=== PATIENT | female | born 1980 | race Caucasian/White ===

== ENCOUNTER 2017-06-17 11:38 | Emergency (ER) | payer OTHER ==
[~2017-06-17] VITALS: Ht 165.1 cm; Wt 64.1 kg
[~2017-06-17 11:38] MED LIST: ETONMIS VAGRING; MULT1TAB79 PO; OMEG1CAP81 PO
[2017-06-17 11:44] VITALS: TEMP 36.7; Ht 165.1 cm; Wt 64.1 kg
[2017-06-17] MEDS ORDERED: METOCLOPRAMIDE HCL INJ 5 MG/ML 2 ML VIAL IV STA (12:27)
[2017-06-17] MEDS ORDERED: ACETAMINOPHEN 500 MG TAB PO STA (12:27)
[2017-06-17] MEDS ORDERED: SODIUM CHLORIDE 0.9% 1000ML 1,000 ML IV STA (12:27)
[2017-06-17] MEDS ORDERED: DiphenhydrAMINE HCL 50 MG/ML VIAL IV STA (12:27)
--- NOTE | 2017-06-17 12:27 | EMERGENCY ROOM VISIT NOTE ---
History Report prepared by Eliana: Shelia Rucker Under the Supervision of: Dr. Dimitrios Mcgill M.D. First contact with patient: 12:04 Chief Complaint: FLANK PAIN Stated Complaint: FLANK, BACK, ABD. PAIN History of Present Illness The patient is a 36 year old white female with a past medical history of migraines who presents to the ED with a cc of constant bilateral flank pain beginning 5 days ago. Positive headache, back pain. She notes that her pain is aching, increased urination, abdominal pain, nausea. She notes nothing worsens or relieves her symptoms. Negative changes in bowel movement, history of kidney stones, vomiting. She reports that she does not drink enough water. LNMP was last week. Pt states that she had a similar pain before her cholecystectomy in April of 2013. She reports that she has not been working out more than usual recently. Source of History: patient Onset: 5 days ago Position: other (bilateral flank) Quality: ache Timing: constant Modifying Factors (Worsening): other (none) Modifying Factors (Relieving): other (none) Associated Symptoms: + headache, + nausea, + abdominal pain, + back pain, + urinary symptoms, No vomiting Review of Systems See HPI for pertinent positives and negatives. A total of ten systems were reviewed and were otherwise negative. Past Medical & Surgical Medical Problems: (1) History Of Tobacco Use (2) No significant medical problems Surgical Problems: (1) History of cholecystectomy Family History No pertinent family history stated. Social History Smoking Status: Former Smoker Alcohol Use: occasionally Drug Use: none Marital Status: Housing Status: lives with family Occupation Status: employed Current/Historical Medications Scheduled Etonogestrel/Ethinyl Estradiol (Nuvaring), 1 EA VAGRING MONTHLY Multiple Vitamins W/ Minerals (Womens Daily Formula), 2 TABS PO DAILY [place]-3 Fatty Acids (Fish Oil), 1 CAP PO DAILY Omeprazole (Prilosec), 20 MG PO DAILY Topiramate (Topiramate), 75 MG PO HS Allergies Coded Allergies: No Known Allergies (Unverified , 06/17/17) Physical Exam Vital Signs Date Time Temp Pulse Resp B/P (MAP) Pulse Ox O2 Delivery O2 Flow Rate FiO2 06/17/17 14:30 68 16 115/72 98 06/17/17 13:44 72 16 115/72 100 Room Air 06/17/17 11:44 36.7 82 20 120/78 100 Room Air Physical Exam GENERAL: Awake, alert, well-appearing, NAD HENT: Normocephalic, atraumatic. EYES: Normal conjunctiva. Sclera non-icteric. NECK: Supple. No nuchal rigidity. FROM. RESPIRATORY: CTAB, no rhonchi, wheezing, crackles CARDIAC: RRR, no MRG ABDOMEN: Soft, NTND, BS+, mild generalized abdominal pain without any guarding or rebound. MSK: No chest wall TTP, no LE edema, no CVA tenderness to palpation, no tenderness to the back. NEURO: GCS 15, CN 2-12 intact, moves all 4s on command SKIN: No rash or jaundice noted. Medical Decision & Procedures Laboratory Results 06/17/17 13:05 Red Blood Count 4.28, Mean Corpuscular Volume 94.6, Mean Corpuscular Hemoglobin 31.5, Mean Corpuscular Hemoglobin Concent 33.3, Mean Platelet Volume 10.1, Neutrophils (%) (Auto) 77.9, Lymphocytes (%) (Auto) 18.1, Monocytes (%) (Auto) 3.4, Eosinophils (%) (Auto) 0.1, Basophils (%) (Auto) 0.3, Neutrophils # (Auto) 7.38, Lymphocytes # (Auto) 1.71, Monocytes # (Auto) 0.32, Eosinophils # (Auto) 0.01, Basophils # (Auto) 0.03 06/17/17 13:05 Test 06/17/17 12:05 06/17/17 13:05 Urine Color YELLOW Urine Appearance CLEAR (CLEAR) Urine pH 5.5 (4.5-7.5) Urine Specific [place] 1.022 (1.000-1.030) Urine Protein NEG (NEG) Urine Glucose (UA) NEG (NEG) Urine Ketones TRACE (NEG) Urine Occult Blood NEG (NEG) Urine Nitrite NEG (NEG) Urine Bilirubin NEG (NEG) Urine Urobilinogen NEG (NEG) Urine Leukocyte Esterase NEG (NEG) Urine Test NEG (NEG) White Blood Count 9.47 K/uL (4.8-10.8) Red Blood Count 4.28 M/uL (4.2-5.4) Hemoglobin 13.5 g/dL (12.0-16.0) Hematocrit 40.5 % (37-47) Mean Corpuscular Volume 94.6 fL (80-100) Mean Corpuscular Hemoglobin 31.5 pg (25-34) Mean Corpuscular Hemoglobin Concent 33.3 g/dl (32-36) Platelet Count 292 K/uL (130-400) Mean Platelet Volume 10.1 fL (7.4-10.4) Neutrophils (%) (Auto) 77.9 % Lymphocytes (%) (Auto) 18.1 % Monocytes (%) (Auto) 3.4 % Eosinophils (%) (Auto) 0.1 % Basophils (%) (Auto) 0.3 % Neutrophils # (Auto) 7.38 K/uL (1.4-6.5) Lymphocytes # (Auto) 1.71 K/uL (1.2-3.4) Monocytes # (Auto) 0.32 K/uL (0.11-0.59) Eosinophils # (Auto) 0.01 K/uL (0-0.5) Basophils # (Auto) 0.03 K/uL (0-0.2) RDW Standard Deviation 41.7 fL (36.4-46.3) RDW Coefficient of Variation 12.2 % (11.5-14.5) Immature Granulocyte % (Auto) 0.2 % Immature Granulocyte # (Auto) 0.02 K/uL (0.00-0.02) Anion Gap 4.0 mmol/L (3-11) Est Creatinine Clear Calc Drug Dose 70.8 ml/min Estimated GFR () 85.9 Estimated GFR (Non- 74.1 BUN/Creatinine Ratio 13.3 (10-20) Calcium Level 9.0 mg/dl (8.5-10.1) Total Bilirubin 1.0 mg/dl (0.2-1) Direct Bilirubin 0.2 mg/dl (0-0.2) Aspartate Amino Transf (AST/SGOT) 18 U/L (15-37) Alanine Aminotransferase (ALT/SGPT) 14 U/L (12-78) Alkaline Phosphatase 63 U/L (45-117) Total Protein 6.8 gm/dl (6.4-8.2) Albumin 3.7 gm/dl (3.4-5.0) Lipase 103 U/L (73-393) Laboratory results reviewed by me Medications Administered Medications (Trade) Dose Ordered Sig/Reed Route Start Time Stop Time Status Last Admin Dose Admin Sodium Chloride 1,000 ml @ 999 mls/hr Q1H1M STAT IV 06/17/17 12:27 06/17/17 13:27 DC 06/17/17 13:02 999 MLS/HR Acetaminophen (Tylenol Tab) 1,000 mg NOW STAT PO 06/17/17 12:27 06/17/17 12:29 DC 06/17/17 13:01 1,000 MG Metoclopramide HCl (Reglan Inj) 10 mg NOW STAT IV 06/17/17 12:27 06/17/17 12:29 DC 06/17/17 13:01 10 MG Diphenhydramine HCl (Benadryl Inj) 25 mg NOW STAT IV 06/17/17 12:27 06/17/17 12:29 DC 06/17/17 13:02 25 MG ED Course 1204: The patient was evaluated in room C5. A complete history and physical exam was performed. 1412: I reevaluated and updated the patient. 1436: I reevaluated the patient. Discussed results and discharge instructions: She verbalized understanding and agreement. The patient is ready for discharge. Medical Decision Differential diagnosis includes dehydration, kidney stone, UTI, MSK strain, sprain, pyelonephritis. The patient is a 36 year old white female with a past medical history of migraines who presents to the ED with a cc of constant bilateral flank pain beginning 5 days ago. Patient well-appearing the noted lab abnormalities. Patient with a negative urinalysis and UPT. Patient no longer with any headache and has no neurological deficits. Patient was told to keep well-hydrated in addition to monitoring her workout periods and avoid anything that may cause her increased diuresis which included caffeinated beverages and alcohol. The patient was given strict follow-up, discharge, return precautions. Patient agreed with care , cautions were answered and patient was discharged home. Medication Reconcilliation Current Medication List: was personally reviewed by me Blood Pressure Screening Patient's blood pressure: Normal blood pressure Blood pressure disposition: Did not require urgent referral Impression Primary Impression: Abdominal pain Additional Impressions: Headache Nausea Scribe Attestation The scribe's documentation has been prepared under my direction and personally reviewed by me in its entirety. I confirm that the note above accurately reflects all work, treatment, procedures, and medical decision making performed by me. Departure Information Dispostion Home / Self-Care Referrals Brinda Drew D.O. (PCP) Forms HOME CARE DOCUMENTATION FORM, IMPORTANT VISIT INFORMATION Patient Instructions Abdominal Pain, Dehydration, Headache Pain, My [facility] Additional Instructions Please return to the emergency department or call your PCPs office if you have worsening or persistent symptoms develop nausea vomiting or high fever. Please follow-up with her PCP within the next week for further evaluation. Problem Qualifiers
[2017-06-17] MEDS: SODIUM CHLORIDE 0.9% 1000ML 1,000 ML IV SCH ×2 (12:30→14:11)
[2017-06-17 12:51] LABS: URINE APPEARANCE CLEAR (CLEAR); URINE BILIRUBIN NEG (NEG); URINE COLOR YELLOW; URINE NITRITE NEG (NEG); URINE PH 5.5 (4.5-7.5); URINE SPECIFIC GRAVITY 1.022 (1.000-1.030); UROBILINOGEN NEG (NEG); ZZUR CULT IF INDIC CLEAN CATCH NO
[2017-06-17 12:54] LABS: MANUAL MICROSCOPIC REQUIRED? NO; REVIEW REQ? NO
[2017-06-17] MEDS ORDERED: PRLSR20 PO (13:07)
[2017-06-17] MEDS ORDERED: TPM25 PO (13:07)
[2017-06-17 13:15] LABS: BASO % 0.3 %; BASO ABS # 0.03 K/uL (0-0.2); COMPLETE YES; EOS % 0.1 %; HEMATOCRIT 40.5 % (37-47); IG% 0.2 %; LYMPH % 18.1 %; LYMPH ABS # 1.71 K/uL (1.2-3.4); MEAN CELL VOLUME 94.6 fL (80-100); MEAN CORPUSCULAR HEMOGLOBIN 31.5 pg (25-34); MEAN CORPUSCULAR HGB CONC 33.3 g/dl (32-36); MEAN PLATELET VOLUME 10.1 fL (7.4-10.4); MONO % 3.4 %; NEUT % 77.9 %; PLATELET COUNT 292 K/uL (130-400); RED BLOOD COUNT 4.28 M/uL (4.2-5.4); WHITE BLOOD COUNT 9.47 K/uL (4.8-10.8)
[2017-06-17 13:30] LABS: BUN/CREATININE RATIO 13.3 (10-20); CREATININE 0.97 mg/dl (0.60-1.20); POTASSIUM 4.3 mmol/L (3.5-5.1)
[2017-06-17 14:30] VITALS: BP 115/72; PULSE 68; O2SAT 98
== END 2017-06-17 14:47 | disposition home or self-care (01) ==
LOC: C.EDB 11:42 → C.EDC 14:47
DX: R10.9 Unspecified abdominal pain (principal); R51 Headache; R11.0 Nausea; Z87.891 Personal history of nicotine dependence; Z90.49 Acquired absence of other specified parts of digestive tract

== ENCOUNTER 2020-06-12 20:55 | Observation (INO) ==
--- NOTE | 2020-06-12 21:46 | Emergency Department Note ---
Impression & Plan Abdominal pain, Nausea, Hypocalcemia ED Provider Note NAME: DAMARIS COELHO AGE: 39 SEX: F : 1980 ARRIVES VIA: Walk-In INFORMANT: Patient, ED PROVIDER(S): Dimitrios Mcgill MD Chief Complaint: Abdominal pains HPI: Patient does present with persistent abdominal pains. The patient describes in the lower abdomen primary in the right lower quadrant. The patient described as sharp and constant. Nonradiating. No recent trauma. The patient has not noticed any bulges or masses but does note that her abdomen seems more full. Patient states her LMP was 2 weeks ago. The patient has tried taking her prescription pain medication at home but without much relief. The patient has had nausea but without vomiting. Patient denies any vaginal bleeding. The patient denies any recent trauma. The patient has been seen in the outpatient setting today and there was concern that a KUB might have noted a small bowel obstruction. The patient was recently seen and diagnosed with an ileus and was told return with any worsening or concerning symptoms and the fact that her pain is been persistent she returned today. The patient did have slightly similar symptoms earlier in the month for which she did receive Bactrim due to the concern for the possibility of a cystitis which seemed to improve her discomfort but she states that this is slightly different and the patient does not have any burning urination. ROS: See HPI for pertinent positives and negatives. A total of 10 systems were reviewed and otherwise negative. Past medical history: See below Surgical history: See below Social history: See below Physical Exam: GENERAL: Wearing a mask. NAD, non-toxic. EYE EXAM: Normal conjunctiva. PERRL, no anisocoria and EOM's grossly intact w/o pain. NECK: Supple, no nuchal rigidity, no adenopathy, non-tender. No signs of meningismus. LUNGS: Clear to auscultation. Normal chest wall mechanics. HEART: NSR, no MRG. ABDOMEN: Abdomen soft, non-tender, normo-active bowel sounds, no masses, no rebound or guarding. BACK: No CVA TTP. SKIN: No rashes and no bruising. UPPER EXTREMITIES: Upper extremities are grossly normal. LOWER EXTREMITIES: Grossly normal, no edema. NEURO EXAM: A&O x3, cranial nerves II-XII grossly intact, normal speech, moves all 4 extremities on command w/o issue. Differential diagnoses: Appendicitis, ovarian cyst, ovarian torsion, ectopic , TOA, PID, infections, diverticulitis, UTI, obstruction, mesenteric ischemia, aortic pathology, inflammatory bowel disease, renal colic, PUD, pancreatitis, biliary pathology, hernia, volvulus, constipation, as well as othe r pathologies. Course: Patient was seen and evaluated the bedside. Full history physical exam was performed. EKG: None Imaging Studies: Radiology results as stated below per my review in the radiologist's interpretation: CT abdomen pelvis with contrast: Compared to 06/10/2020. Fluid in the small and large bowel, can be seen with enteritis or diarrheal disease. Areas of mild bowel wall thickening or underdistention. No significant bowel distention to suggest obstruction. Slightly thickened underdistended bladder. Trace pericardial fluid. Additional findings similar to prior study. Radiologist: Brii Jimenes MD Ultrasound pelvic/endovaginal: Compared to CT 06/12/2020. Evaluation limited due to overlying bowel gas. Trace fluid in cervix. Unremarkable right ovary. Left ovary not visualized. Radiologist: Brii Jimenes MD Cardiac monitoring: An order was placed for continuous cardiac monitoring. The monitor shows a rate of 79 with sinus rhythm. MDM: Patient does present with concern for abdominal pains. Blood work was obtained along with repeat CT of the abdomen pelvis and the patient did receive IV fluids antiemetics and pain medication. Patient has a normal white count. Hemoglobin is normal. Platelet count is also normal. Patient has normal kidney function. Very mild hypercalcemia at 8.4 which may be repleted in the diet. Alk phos is slightly elevated at 150 but the patient's bilirubin AST ALT are within normal limits. Lipase within normal limits. Urinalysis does not show any obvious infection the patient does have some calcium oxalate crystals but no blood. Discussed the patient CT findings. I did discuss that there were was not a report of hydronephrosis although the patient did have some calcium oxalate crystals which could be consistent with kidney stone. I did discuss that given that it was a contrasted study if it was a small stone that could be causing discomfort this may not be overtly evident on a contrasted CT scan. Patient also does have evidence consistent with enteritis. I did discuss further treatment as well as testing and did offer the patient admission for continued bowel rest and pain and nausea medication. Pelvic ultrasound was obtained. Pelvic ultrasound does show limitations due to overlying bowel gas but the pat ient does have an unremarkable right ovary. Left ovary not visualized. Given the patient's intractable pain and nausea that is been persistent for approximately 4 weeks with multiple visits I did offer observation versus close outpatient follow-up. The patient would prefer to stay given that her pain has not been well controlled. Patient was subsequently m[facility] to [facility] medicine service under Dr. Barfield. Past Med/Surg History Medical History (Updated 06/13/20 @ 01:54 by Dimitrios Mcgill MD) Ileus (Inactive) Surgical History (Updated 06/13/20 @ 00:24 by Dimitrios Mcgill MD) History of cholecystectomy (Resolved) Social History Smoking Status: Never smoker Preferred Language: [place] Citizen Feels Safe at Home: Yes Allergies Allergies Allergy/AdvReac Type Severity Reaction Status Date / Time No Known Allergies Allergy Unverified 06/12/20 22:49 Home Meds Home Medications Medication Instructions Recorded Confirmed duloxetine 60 mg PO DAILY 06/09/20 06/12/20 etonogestrel-ethinyl estradiol 1 vag ring VAGINAL UD 06/09/20 06/12/20 [EluRyng] omeprazole 20 mg PO DAILY 06/09/20 06/12/20 topiramate 100 mg PO BID 06/09/20 06/12/20 tramadol [Ultram] 50 mg PO Q6 PRN 06/12/20 06/12/20 Results & Data (ED) Vital Signs Vital Signs - 24 hr 06/12/20 21:00 06/12/20 22:45 06/12/20 22:48 Temperature 37.4 C Temperature Source Oral Pulse Rate 87 82 Pulse Rate [Finger] 79 Pulse Rate from SpO2 Sensor 79 Respiratory Rate 16 17 18 Respiratory Effort / Characteristics Non-Labored Spontaneous Non-Labored Spontaneous Respiratory Depth Normal Normal Respiratory Pattern Regular Blood Pressure 117/74 111/60 Blood Pressure [Left Arm] 111/60 Blood Pressure Mean 88 76 Blood Pressure Mean [Left Arm] 77 Blood Pressure Position Sitting Blood Pressure Position [Left Arm] Sitting Pulse Oximetry 98 98 98 Oxygen Delivery Method Room Air Room Air Sepsis Recent Fever Within 48 Hours No Sepsis New/Unexplained Change in Mental Status No Sepsis Action Taken by Nursing No Action Required 06/12/20 22:56 06/12/20 23:00 06/12/20 23:30 Temperature Temperature Source Pulse Rate 83 75 78 Pulse Rate [Finger] Pulse Rate from SpO2 Sensor 81 76 Respiratory Rate 18 13 12 Respiratory Effort / Characteristics Respiratory Depth Respiratory Pattern Blood Pressure Blood Pressure [Left Arm] Blood Pressure Mean Blood Pressure Mean [Left Arm] Blood Pressure Position Blood Pressure Position [Left Arm] Pulse Oximetry 97 98 Oxygen Delivery Method Sepsis Recent Fever Within 48 Hours Sepsis New/Unexplained Change in Mental Status Sepsis Action Taken by Nursing 06/13/20 00:00 Temperature Temperature Source Pulse Rate 73 Pulse Rate [Finger] Pulse Rate from SpO2 Sensor Respiratory Rate 18 Respiratory Effort / Characteristics Respiratory Depth Respiratory Pattern Blood Pressure Blood Pressure [Left Arm] Blood Pressure Mean Blood Pressure Mean [Left Arm] Blood Pressure Position Blood Pressure Position [Left Arm] Pulse Oximetry Oxygen Delivery Method Sepsis Recent Fever Within 48 Hours Sepsis New/Unexplained Change in Mental Status Sepsis Action Taken by [facility] Medications Current Medication List: was personally reviewed by me Laboratory Data Attestation: I reviewed the patient's lab results. Result diagrams: 06/12/20 21:39 06/12/20 21:39 Lab Results 06/12/20 06/12/20 06/12/20 Range/Units 21:39 21:39 21:40 WBC 6.46 (4.8-10.8) K/uL RBC 4.15 L (4.2-5.4) M/uL Hgb 12.7 (12.0-16.0) g/dL Hct 36.7 L (37-47) % MCV 88.4 (80-100) fL MCH 30.6 (25-34) pg MCHC 34.6 (32-36) g/dL RDW Std Deviation 42.1 (36.4-46.3) fL RDW Coeff of [place] 13.0 (11.5-14.5) % Plt Count 216 (130-400) K/uL MPV 9.9 (7.4-10.4) fL Neutrophils % (Manual) 30.4 % Lymphocytes % (Manual) 31.3 % Reactive Lymphs % (Man) 32.9 % Monocytes % (Manual) 3.6 % Basophils % (Manual) 1.8 % Neutrophils # (Manual) 1.96 (1.4-6.5) K/uL Total Absolute Neuts 1.96 (1.4-6.5) K/uL Lymphocytes # (Manual) 2.02 (1.2-3.4) K/uL Reactive Lymphs # 2.13 K/uL Total Abs Lymphocytes 4.15 H (1.2-3.4) K/uL Monocytes # (Manual) 0.23 (0.11-0.59) K/uL Basophils # (Manual) 0.12 (0-0.2) K/uL RBC Morphology Unremarkable Sodium 139 (136-145) mmol/L Potassium 3.8 (3.5-5.1) mmol/L Chloride 111 H (98-107) mmol/L Carbon Dioxide 22 (21-32) mmol/L Anion Gap 6.0 (3-11) BUN 10 (7-18) mg/dl Creatinine 0.81 (0.6-1.2) mg/dl Est Cr Clr Drug Dosing 89.8 ml/min Est GFR ( Amer) 104.6 Est GFR (Non-Af Amer) 90.2 BUN/Creatinine Ratio 11.9 (10-20) Glucose 76 (70-99) mg/dl Calcium 8.4 L (8.5-10.1) mg/dl Total Bilirubin 0.4 (0.2-1) mg/dl AST 34 (15-37) U/L ALT 28 (12-78) U/L Alkaline Phosphatase 152 H (45-117) U/L Total Protein 7.1 (6.4-8.2) gm/dl Albumin 3.2 L (3.4-5.0) gm/dl Globulin 3.9 (2.5-4.0) gm/dl Albumin/Globulin Ratio 0.8 L (0.9-2) Lipase 116 (73-393) U/L Urine Color Dark Yellow Urine Appearance Turbid A (Clear) Urine pH 7.5 (4.5-7.5) Ur Specific [place] 1.021 (1.000-1.030) Urine Protein Negative (Negative) Urine Glucose (UA) Negative (Negative) Urine Ketones Negative (Negative) Urine Blood Negative (Negative) Urine Nitrite Negative (Negative) Urine Bilirubin Negative (Negative) Urine Urobilinogen Negative (Negative) Ur Leukocyte Esterase Negative (Negative) Urine WBC (Auto) 1-5 (0-5) /hpf Urine RBC (Auto) 0-4 (0-4) /hpf U Hyaline Cast (Auto) 1-5 (0-5) /lpf U Epithel Cells (Auto) 10-20 H (0-5) /lpf Urine Bacteria (Auto) Negative (Negative) Urine Crystals Calcium Oxalate A (None Prsent) Calcium Oxalate Crystal Present A (None Prsent) Urine Test (Negative) 06/12/20 Range/Units 21:40 WBC (4.8-10.8) K/uL RBC (4.2-5.4) M/uL Hgb (12.0-16.0) g/dL Hct (37-47) % MCV (80-100) fL MCH (25-34) pg MCHC (32-36) g/dL RDW Std Deviation (36.4-46.3) fL RDW Coeff of [place] (11.5-14.5) % Plt Count (130-400) K/uL MPV (7.4-10.4) fL Neutrophils % (Manual) % Lymphocytes % (Manual) % Reactive Lymphs % (Man) % Monocytes % (Manual) % Basophils % (Manual) % Neutrophils # (Manual) (1.4-6.5) K/uL Total Absolute Neuts (1.4-6.5) K/uL Lymphocytes # (Manual) (1.2-3.4) K/uL Reactive Lymphs # K/uL Total Abs Lymphocytes (1.2-3.4) K/uL Monocytes # (Manual) (0.11-0.59) K/uL Basophils # (Manual) (0-0.2) K/uL RBC Morphology Sodium (136-145) mmol/L Potassium (3.5-5.1) mmol/L Chloride (98-107) mmol/L Carbon Dioxide (21-32) mmol/L Anion Gap (3-11) BUN (7-18) mg/dl Creatinine (0.6-1.2) mg/dl Est Cr Clr Drug Dosing ml/min Est GFR ( Amer) Est GFR (Non-Af Amer) BUN/Creatinine Ratio (10-20) Glucose (70-99) mg/dl Calcium (8.5-10.1) mg/dl Total Bilirubin (0.2-1) mg/dl AST (15-37) U/L ALT (12-78) U/L Alkaline Phosphatase (45-117) U/L Total Protein (6.4-8.2) gm/dl Albumin (3.4-5.0) gm/dl Globulin (2.5-4.0) gm/dl Albumin/Globulin Ratio (0.9-2) Lipase (73-393) U/L Urine Color Urine Appearance (Clear) Urine pH (4.5-7.5) Ur Specific [place] (1.000-1.030) Urine Protein (Negative) Urine Glucose (UA) (Negative) Urine Ketones (Negative) Urine Blood (Negative) Urine Nitrite (Negative) Urine Bilirubin (Negative) Urine Urobilinogen (Negative) Ur Leukocyte Esterase (Negative) Urine WBC (Auto) (0-5) /hpf Urine RBC (Auto) (0-4) /hpf U Hyaline Cast (Auto) (0-5) /lpf U Epithel Cells (Auto) (0-5) /lpf Urine Bacteria (Auto) (Negative) Urine Crystals (None Prsent) Calcium Oxalate Crystal (None Prsent) Urine Test Negative (Negative) Administered Medications Morphine Sulfate (Morphine Sulfate) 4 mg IV Q1H PRN PRN Reason: Pain Stop: 06/26/20 23:47 Last Admin: 06/13/20 00:01 Dose: 4 mg Documented by: [id number] Discontinued Medications Sodium Chloride (Nss 1000ml) 1,000 mls @ 999 mls/hr IV .Q1H1M ONE Stop: 06/12/20 23:09 Last Infusion: 06/13/20 00:16 Dose: 0 mls/hr Documented by: [id number] Admin: 06/12/20 22:45 Dose: 999 mls/hr Documented by: [id number] Ioversol (Optiray 320 100ml) 94 ml IV ONCE ONE Stop: 06/12/20 22:37 Last Admin: 06/12/20 22:36 Dose: 94 ml Documented by: [id number] Ketorolac Tromethamine (Toradol) 30 mg IV NOW STA Stop: 06/12/20 23:49 Last Admin: 06/12/20 23:52 Dose: 30 mg Documented by: [id number] Morphine Sulfate (Morphine Sulfate) 4 mg IV NOW STA Stop: 06/12/20 22:10 Last Admin: 06/12/20 22:47 Dose: 4 mg Documented by: [id number] Ondansetron HCl (Zofran) 4 mg IV NOW STA Stop: 06/12/20 22:10 Last Admin: 06/12/20 22:47 Dose: 4 mg Documented by: [id number] Discharge Plan Visit Data Chief Complaint: Flank Pain Stated Complaint: FALNK PAIN, AB PAIN, LOWER BACK PAIN ED Provider: Dimitrios Mcgill Discharge Problem: Abdominal pain, Nausea, Hypocalcemia Forms Stand Alone Forms: [facility] Prescriptions Prescriptions: No Action tramadol [Ultram] 50 mg tablet 50 mg PO Q6 PRN (Reason: Pain) RF: 0 omeprazole 20 mg capsule,delayed release(DR/EC) 20 mg PO DAILY RF: 0 topiramate 100 mg tablet 100 mg PO BID RF: 0 duloxetine 60 mg capsule,delayed release(DR/EC) 60 mg PO DAILY RF: 0 etonogestrel-ethinyl estradiol [EluRyng] 0.12-0.015 mg/24 hr ring 1 vag ring VAGINAL UD RF: 0 Discharge Problem: Abdominal pain Qualifiers: Abdominal location: right lower quadrant Qualified Code(s): R10.31 - Right lower quadrant pain
[2020-06-12 21:50] LABS: Hematocrit (blood only) 36.7 % (37-47); Hemoglobin 12.7 g/dL (12.0-16.0); Mean Corpuscular Hemoglobin 30.6 pg (25-34); Mean Corpuscular Hgb Conc 34.6 g/dL (32-36); Mean Corpuscular Volume 88.4 fL (80-100); Mean Platelet Volume 9.9 fL (7.4-10.4); Platelet Count 216 K/uL (130-400); RDW Standard Deviation 42.1 fL (36.4-46.3); Red Blood Count 4.15 M/uL (4.2-5.4); White Blood Count 6.46 K/uL (4.8-10.8)
[2020-06-12 21:59] LABS: Appearance Urine Turbid (Clear); Bacteria Urine Automated Negative (Negative); Bilirubin Urine Negative (Negative); Blood Urine Negative (Negative); Color Urine Dark Yellow; Glucose Urine UA Negative (Negative); Ketones Urine Negative (Negative); Leukocyte Esterase Urine Negative (Negative); Nitrite Urine Negative (Negative); Specific Gravity Urine 1.021 (1.000-1.030); Urobilinogen Urine Negative (Negative); pH Urine 7.5 (4.5-7.5)
[2020-06-12 22:04] LABS: Protein Urine Negative (Negative); Sulfosalicylic Acid Urine Negative (Negative)
[2020-06-12 22:07] LABS: Albumin Level 3.2 gm/dl (3.4-5.0); BUN Creatinine Ratio 11.9 (10-20); Calcium 8.4 mg/dl (8.5-10.1); Creatinine Clr Calc Pharmacy 89.8 ml/min; Est GFR (African American) 104.6; Est GFR (Non-African American) 90.2; Potassium 3.8 mmol/L (3.5-5.1)
[2020-06-12] MEDS ORDERED: ONDANSETRON INJ 2 MG/ML 2 ML VIAL IV STA (22:09)
[2020-06-12] MEDS ORDERED: MoRPHine SULFATE 4 MG/ML 1 ML CARP\\VIAL IV STA (22:09)
[2020-06-12] MEDS ORDERED: SODIUM CHLORIDE 0.9% 1000ML 1,000 ML IV ONE (22:09)
[2020-06-12 22:10] LABS: Albumin Globulin Ratio 0.8 (0.9-2); Bilirubin,Total 0.4 mg/dl (0.2-1); Globulin 3.9 gm/dl (2.5-4.0); Total Protein 7.1 gm/dl (6.4-8.2)
[2020-06-12 22:11] LABS: Calcium Oxalate Crystals Urine Present (None Prsent); RBC Urine Automated 0-4 /hpf (0-4)
[2020-06-12] MEDS ORDERED: IOVERSOL 100ml IV ONE (22:36)
[2020-06-12 22:42] LABS: ALC (manual) 4.15 K/uL (1.2-3.4); ANC (manual) 1.96 K/uL (1.4-6.5); Basophils # (manual) 0.12 K/uL (0-0.2); Basophils % (manual) 1.8 %; Lymphocytes # (manual) 2.02 K/uL (1.2-3.4); Lymphocytes % (manual) 31.3 %; Monocytes # (manual) 0.23 K/uL (0.11-0.59); Monocytes % (manual) 3.6 %; Neutrophils # (manual) 1.96 K/uL (1.4-6.5); Neutrophils % (manual) 30.4 %; RBC Morphology Unremarkable; Reactive Lymphocytes # (manual) 2.13 K/uL; Reactive Lymphocytes % (manual) 32.9 %
[2020-06-12 23:05] LABS: Pregnancy Test, Urine Negative (Negative)
[2020-06-12] MEDS ORDERED: KETOROLAC 30 MG/ML VIAL IV STA (23:48)
[2020-06-12] MEDS ORDERED: MoRPHine SULFATE 4 MG/ML 1 ML CARP\\VIAL IV PRN (23:48)
[2020-06-13] MEDS ORDERED: PROMETHAZINE HCL 12.5 MG in SODIUM CHLORIDE 0.9% 50 ML IV PRN (02:27)
[2020-06-13] MEDS ORDERED: KETOROLAC TROMETHAMINE 15 MG/ML VIAL IV PRN (02:27)
[2020-06-13] MEDS ORDERED: ACETAMINOPHEN 325 MG TAB PO PRN (02:27)
--- NOTE | 2020-06-13 03:00 | History & Physical Report ---
Date of Service June 13, 2020 Assessment & Plan (1) Abdominal pain: Few weeks duration Gastroenteritis rule out C. difficile given recent outpatient Bactrim Rx, patient nontoxic/nonseptic hx IBS as per records GERD, stable on PPI mood disorder, stable on regimen past tobacco abuse OBS GMF Supportive management for gastroenteritis Stool C. difficile Inpatient GI consult for abdominal pain of protracted duration as per patient request (Patient known to Dr. Coburn) DVT prophylaxis SCDs RE transient hematochezia Full code Patient's partner requesting updates from providers. Mr. Nazario Hall, contact number [phone] Text document was generated using Flud recognition software. It may contain grammatical or spelling errors. Kindly contact undersigned for clarification of any documentation item in question. History of Present Illness Chief Complaint: Abdominal pain Primary Care Provider: Brinda Drew, History obtained from patient, family, and records. Medical history significant for IBS, GERD, mood disorder, past tobacco abuse. Last confinement April 2013 under General Surgery service for laparoscopic cholecystectomy. Patient has had IBS diagnosis for about 25 years now. Initially constipation predominant illness. Symptoms improved with SSRI and PPI Rx. SSRI later switched to Cymbalta with concomitant left knee pain discomfort. In the last few years, IBS more of diarrhea predominant as per patient. Watery loose stools about twice daily frequency. No unusual weight loss. 3 weeks history of achy lower abdominal pain going to her back with usual loose stools. Transiently improved with Bactrim Rx for possible UTI. Intermittent fever at home. Some bloatedness after eating. No known sick contacts, recent out-of-town travel. No unusual stress at home or at work as per patient. Patient seen at the ER 3 days ago because of worsening abdominal discomfort the last [address] showed ileus. Symptoms attributed to viral illness. Patient discharged home given patient comfort after intervention at the ER. Recurrence of discomfort at home the last 2 days with some nausea, no emesis. Occasional blood in the stools as per patient. Patient sent to the ER for evaluation. Intractable discomfort at the ER. Medical History as above 2019 colonoscopy showed polyps, hemorrhoids Surgical History : Cholecystectomy, left knee surgery, cervical colposcopy Family History : Pancreatic cancer, colon cancer, diabetes, heart disease, stroke Personal/Social history : Past tobacco abuse, occasional EtOH intake, office work Allergies Allergy/AdvReac Type Severity Reaction Status Date / Time No Known Allergies Allergy Unverified 06/12/20 22:49 Home Medications Home Medications Medication Instructions Recorded Confirmed Type duloxetine 60 mg PO DAILY 06/09/20 06/12/20 History etonogestrel-ethinyl estradiol 1 vag ring VAGINAL UD 06/09/20 06/12/20 History [EluRyng] omeprazole 20 mg PO DAILY 06/09/20 06/12/20 History topiramate 100 mg PO BID 06/09/20 06/12/20 History tramadol [Ultram] 50 mg PO Q6 PRN 06/12/20 06/12/20 History Past Med/Surg History Medical History (Updated 06/13/20 @ 10:30 by Mervat Fischer) Ileus (Inactive) Loose stools Surgical History History of cholecystectomy (Resolved) Social History Smoking Status: Former smoker Second Hand Exposure: No; Do You Dip or Chew Tobacco: No; Tobacco Cessation Education Requested by Patient: No Hx Alcohol Use: No Hx Substance Use: No Preferred Language: Upper Sorbian Communication Ability: Effective [employer] Treating Unit Operator Required: No Beliefs That Will Affect Care: None Current Living Situation: Significant Other Other Information That Helps Us Care for You: No Feels Safe at Home: Yes Safety Concerns: Feels Safe At This Time Review of Systems Review of Systems: As per HPI, all 10 systems reviewed, all other ROS negative Physical Exam Physical Exam: GENERAL: Slightly uncomfortable, pleasant, no respiratory distress SKIN: Normal color, warm HEENT: [place] palpebral conjunctivae, no ptosis, dry buccal mucosa NECK : Supple, no tenderness CHEST : CTA, no tenderness HEART : RRR, no obvious murmurs ABDOMEN: Some distention, nonspecific tenderness on light palpation EXTREMITIES : No LE swelling/tenderness, no other conspicuous deformities noted NEUROLOGIC : Coherent, no facial asymmetry, no other gross focality Results & Data Results & Data ([facility]) Vital Signs (Past 12 Hours) Vital Signs Temp Pulse Pulse Resp BP BP Pulse Ox 06/13/20 02:00 71 12 111/67 97 06/13/20 01:59 74 13 112/62 97 06/13/20 00:00 73 18 06/12/20 23:30 78 12 06/12/20 23:00 75 13 98 06/12/20 22:56 83 18 97 06/12/20 22:48 79 18 111/60 98 06/12/20 22:45 82 17 111/60 98 06/12/20 21:00 37.4 C 87 16 117/74 98 Laboratory Results Laboratory Results WBC 6.46 K/uL (4.8-10.8) 06/12/20 21:39 RBC 4.15 M/uL (4.2-5.4) L 06/12/20 21:39 Hgb 12.7 g/dL (12.0-16.0) 06/12/20 21:39 Hct 36.7 % (37-47) L 06/12/20 21:39 MCV 88.4 fL (80-100) 06/12/20 21:39 MCH 30.6 pg (25-34) 06/12/20 21:39 MCHC 34.6 g/dL (32-36) 06/12/20 21:39 RDW Std Deviation 42.1 fL (36.4-46.3) 06/12/20 21:39 RDW Coeff of Anuja 13.0 % (11.5-14.5) 06/12/20 21:39 Plt Count 216 K/uL (130-400) 06/12/20 21:39 MPV 9.9 fL (7.4-10.4) 06/12/20 21:39 Neutrophils % (Manual) 30.4 % 06/12/20 21:39 Lymphocytes % (Manual) 31.3 % 06/12/20 21:39 Reactive Lymphs % (Man) 32.9 % 06/12/20 21:39 Monocytes % (Manual) 3.6 % 06/12/20 21:39 Basophils % (Manual) 1.8 % 06/12/20 21:39 Neutrophils # (Manual) 1.96 K/uL (1.4-6.5) 06/12/20 21:39 Total Absolute Neuts 1.96 K/uL (1.4-6.5) 06/12/20 21:39 Lymphocytes # (Manual) 2.02 K/uL (1.2-3.4) 06/12/20 21:39 Reactive Lymphs # 2.13 K/uL 06/12/20 21:39 Total Abs Lymphocytes 4.15 K/uL (1.2-3.4) H 06/12/20 21:39 Monocytes # (Manual) 0.23 K/uL (0.11-0.59) 06/12/20 21:39 Basophils # (Manual) 0.12 K/uL (0-0.2) 06/12/20 21:39 RBC Morphology Unremarkable 06/12/20 21:39 Sodium 139 mmol/L (136-145) 06/12/20 21:39 Potassium 3.8 mmol/L (3.5-5.1) 06/12/20 21:39 Chloride 111 mmol/L (98-107) H 06/12/20 21:39 Carbon Dioxide 22 mmol/L (21-32) 06/12/20 21:39 Anion Gap 6.0 (3-11) 06/12/20 21:39 BUN 10 mg/dl (7-18) 06/12/20 21:39 Creatinine 0.81 mg/dl (0.6-1.2) 06/12/20 21:39 Est Cr Clr Drug Dosing 89.8 ml/min 06/12/20 21:39 Est GFR ( Amer) 104.6 06/12/20 21:39 Est GFR (Non-Af Amer) 90.2 06/12/20 21:39 BUN/Creatinine Ratio 11.9 (10-20) 06/12/20 21:39 Glucose 76 mg/dl (70-99) 06/12/20 21:39 Calcium 8.4 mg/dl (8.5-10.1) L 06/12/20 21:39 Total Bilirubin 0.4 mg/dl (0.2-1) 06/12/20 21:39 AST 34 U/L (15-37) 06/12/20 21:39 ALT 28 U/L (12-78) 06/12/20 21:39 Alkaline Phosphatase 152 U/L (45-117) H 06/12/20 21:39 Total Protein 7.1 gm/dl (6.4-8.2) 06/12/20 21:39 Albumin 3.2 gm/dl (3.4-5.0) L 06/12/20 21:39 Globulin 3.9 gm/dl (2.5-4.0) 06/12/20 21:39 Albumin/Globulin Ratio 0.8 (0.9-2) L 06/12/20 21:39 Lipase 116 U/L (73-393) 06/12/20 21:39 Urine Color Dark Yellow 06/12/20 21:40 Urine Appearance Turbid (Clear) A 06/12/20 21:40 Urine pH 7.5 (4.5-7.5) 06/12/20 21:40 Ur Specific [place] 1.021 (1.000-1.030) 06/12/20 21:40 Urine Protein Negative (Negative) 06/12/20 21:40 Urine Glucose (UA) Negative (Negative) 06/12/20 21:40 Urine Ketones Negative (Negative) 06/12/20 21:40 Urine Blood Negative (Negative) 06/12/20 21:40 Urine Nitrite Negative (Negative) 06/12/20 21:40 Urine Bilirubin Negative (Negative) 06/12/20 21:40 Urine Urobilinogen Negative (Negative) 06/12/20 21:40 Ur Leukocyte Esterase Negative (Negative) 06/12/20 21:40 Urine WBC (Auto) 1-5 /hpf (0-5) 06/12/20 21:40 Urine RBC (Auto) 0-4 /hpf (0-4) 06/12/20 21:40 U Hyaline Cast (Auto) 1-5 /lpf (0-5) 06/12/20 21:40 U Epithel Cells (Auto) 10-20 /lpf (0-5) H 06/12/20 21:40 Urine Bacteria (Auto) Negative (Negative) 06/12/20 21:40 Urine Crystals Calcium Oxalate (None Prsent) A 06/12/20 21:40 Calcium Oxalate Crystal Present (None Prsent) A 06/12/20 21:40 Urine Test Negative (Negative) 06/12/20 21:[address] abdomen pelvis initial read: Enteritis. No bowel obstruction. Underdistended bladder. Trace pericardial fluid. Pelvic ultrasound initial read: Evaluation limited due to overlying bowel gas. Trace cervical fluid. Unremarkable right ovary. Left ovary not visualized. (1) Abdominal pain Abdominal location: right lower quadrant Qualified Code(s): R10.31 - Right lower quadrant pain
[2020-06-13] MEDS ORDERED: LORazepam 0.25 MG/0.5 ML VIAL IV PRN (04:15)
[2020-06-13] MEDS ORDERED: LACTATED RINGER'S 1,000 ML IV ONE (04:15)
[2020-06-13 04:25] LABS: Magnesium 2.3 mg/dl (1.8-2.4)
[2020-06-13] MEDS: TRAMADOL HCL 50 MG TABLET PO PRN ×2 (04:32→14:26)
[2020-06-13] MEDS ORDERED: ETONOGESTREL ETHINYL ESTRADIOL PV SCH (04:45)
[2020-06-13 07:00] LABS: Hematocrit (blood only) 35.1 % (37-47); Hemoglobin 11.6 g/dL (12.0-16.0); Mean Corpuscular Hemoglobin 29.8 pg (25-34); Mean Corpuscular Volume 90.2 fL (80-100); Mean Platelet Volume 9.8 fL (7.4-10.4); Platelet Count 209 K/uL (130-400); RDW Coefficient of Variation 13.2 % (11.5-14.5); RDW Standard Deviation 42.9 fL (36.4-46.3); Red Blood Count 3.89 M/uL (4.2-5.4); White Blood Count 5.62 K/uL (4.8-10.8)
--- NOTE | 2020-06-13 07:10 | Ultrasound Report ---
US pelvic complete CLINICAL HISTORY: lower ab pain PAIN. NAUSEA. COMPARISON STUDY: None FINDINGS: The uterus measured 6.5 cm. The endometrial stripe measured 5 mm. The right ovary measured 2.5 cm maximum dimension. Normal vascular flow. The left ovary measured poorly seen due to overlying bowel content. There is no ultrasonographic evidence of ovarian torsion. It should be noted that ovarian torsion can be present with normal Doppler ultrasonographic findings. There was no evidence of pathologic free pelvic fluid. IMPRESSION: 1. Poor visibility left ovary due to overlying bowel content. 2. Otherwise negative pelvic ultrasound. ACT 112: Negative or not required by law. The above report was generated using voice recognition software. It may contain grammatical, syntax or spelling errors. Electronically signed by: Erickson So M.D. 06/13/2020 7:09 AM
[2020-06-13 07:32] LABS: BUN Creatinine Ratio 11.1 (10-20); Creatinine Clr Calc Pharmacy 88.8 ml/min; Est GFR (African American) 114.8; Potassium 3.8 mmol/L (3.5-5.1)
--- NOTE | 2020-06-13 07:38 | CT Scan Report ---
CT abd pelvis IV con only CLINICAL HISTORY: Abdominal pain. Possible small bowel obstruction COMPARISON STUDY: 06/10/2020 TECHNIQUE: The patient was scanned in a dynamic helical fashion during intravenous administration of 94 cc Optiray 320 A dose lowering technique was utilized adhering to the principles of ALARA. CT DOSE: 319.92 mGy.cm FINDINGS: Lower chest: The lung bases are clear. There is trace pericardial fluid. Liver: There is mild central intrahepatic biliary ductal prominence, likely secondary to a reservoir effect given the prior cholecystectomy Gallbladder: Surgically absent Spleen: Normal in size and attenuation. Pancreas: Unremarkable. Adrenal glands: Unremarkable. Kidneys: There is symmetric renal cortical enhancement. The kidneys are normal in size without hydron ephrosis. Bowel: There are fluid-filled loops of colon and small bowel with scattered air-fluid levels. There a re no transition zones to indicate bowel obstruction. The findings are suggestive of a possible enter itis. There is no significant bowel wall thickening. There is no evidence of acute diverticulitis. Th e appendix is not visualized with certainty however there are no findings to indicate acute appendici tis. Peritoneum: There is no intraperitoneal free air or abdominal ascites. Vasculature: The abdominal aorta is normal in course and caliber. Adenopathy: None. Pelvic viscera: There is an indwelling vaginal ring. Skeletal structures: No destructive osseous lesions are seen. IMPRESSION: 1. No evidence of bowel obstruction. No evidence of free air 2. Fluid-filled large and small bowel loops. This is a nonspecific finding which can be seen in diarr heal illness or an enteritis. Clinical correlation in this regard is advocated 3. No evidence of acute diverticulitis. No evidence of acute appendicitis. ACT 112: Negative or not required by law. Electronically signed by: Peter Lang M.D. 06/13/2020 7:37 AM
[2020-06-13 08:14] LABS: RBC Morphology Unremarkable
[2020-06-13 08:20] LABS: ALC (manual) 4.65 K/uL (1.2-3.4); ANC (manual) 0.73 K/uL (1.4-6.5); Lymphocytes # (manual) 2.79 K/uL (1.2-3.4); Lymphocytes % (manual) 49.7 %; Monocytes # (manual) 0.24 K/uL (0.11-0.59); Monocytes % (manual) 4.3 %; Neutrophils # (manual) 0.73 K/uL (1.4-6.5); Reactive Lymphocytes # (manual) 1.85 K/uL
[2020-06-13] MEDS ORDERED: PANTOprazole 40 MG TAB PO SCH (09:00)
[2020-06-13] MEDS: TOPIRAMATE 100 MG TAB PO SCH ×2 (09:10→22:12)
[2020-06-13] MEDS: DULOXETINE HCL 60 MG CAP PO SCH (09:10)
--- NOTE | 2020-06-13 10:28 | Gastrointestinal Consultation ---
Date of Consultation June 13, 2020 Assessment & Plan (1) Abdominal pain: 39 yo female with IBS recently given abx now with abd discomfort and nausea as well as loose stools. Suspect this is related to the abx superimposed on her IBS. Would check stool for C diff and culture. IVF hydration. [place] diet. PRN use of anti-spasmodics (ie dicyclomine 10 mg QID PRN). (2) Nausea: (3) Loose stools: History of Present Illness Reason for Consultation: Abd pain; loose stool Attending Physician: Ismael Black MD History of Present Illness 39 yo female with a h/o cholecystectomy as well as a long standing history of irritable bowel syndrome followed as an outpatient by . She presented to the ER again last evening with complaints of lower abd pain/cramping as well as loose stools. She has also noted some nausea and bloating. Recently given Bactrim for a ??UTI. She was treated over night with bowel rest and IVF hydration. Labs are normal. Stool testing was not done. She had a CT done on the Er several days ago which was essentially normal aside from some fluid filled loops of small bowel. Allergies Allergy/AdvReac Type Severity Reaction Status Date / Time No Known Allergies Allergy Unverified 06/12/20 22:49 Home Medications Home Medications Medication Instructions Recorded Confirmed Type duloxetine 60 mg PO DAILY 06/09/20 06/12/20 History etonogestrel-ethinyl estradiol 1 vag ring VAGINAL UD 06/09/20 06/12/20 History [EluRyng] omeprazole 20 mg PO DAILY 06/09/20 06/12/20 History topiramate 100 mg PO BID 06/09/20 06/12/20 History tramadol [Ultram] 50 mg PO Q6 PRN 06/12/20 06/12/20 History Patient History Medical History Ileus (Inactive) Surgical History History of cholecystectomy (Resolved) Social History Smoking Status: Former smoker Second Hand Exposure: No; Do You Dip or Chew Tobacco: No; Tobacco Cessation Education Requested by Patient: No Hx Alcohol Use: No Hx Substance Use: No Preferred Language: Kazakh Communication Ability: Effective Operator Prefinish Required: No Beliefs That Will Affect Care: None Current Living Situation: Significant Other Other Information That Helps Us Care for You: No Feels Safe at Home: Yes Safety Concerns: Feels Safe At This Time Review of Systems Review of Systems: All systems reviewed & are unremarkable except as noted in HPI & below Physical Exam Constitutional: WD/WN, vitals as above Respiratory: normal respiratory effort, lungs clear to auscultation Cardiovascular: RRR, no murmur, no edema Gastrointestinal (Abdomen): normal bowel sounds, soft, nontender, no hepatosplenomegaly Results & Data ([facility]) Vital Signs (Past 12 Hours) Vital Signs Temp Pulse Pulse Resp BP BP Pulse Ox 06/13/20 06:57 36.5 C 63 17 106/70 98 06/13/20 04:00 65 16 107/67 97 06/13/20 03:33 63 18 115/65 98 06/13/20 03:00 70 15 122/69 06/13/20 02:00 71 12 111/67 97 06/13/20 01:59 74 13 112/62 97 06/13/20 00:00 73 18 06/12/20 23:30 78 12 06/12/20 23:00 75 13 98 06/12/20 22:56 83 18 97 06/12/20 22:48 79 18 111/60 98 06/12/20 22:45 82 17 111/60 98 (1) Abdominal pain Abdominal location: right lower quadrant Qualified Code(s): R10.31 - Right lower quadrant pain
[2020-06-13 10:48] LABS: Hematocrit (blood only) 34.1 % (37-47); Hemoglobin 11.4 g/dL (12.0-16.0); Mean Corpuscular Hemoglobin 30.1 pg (25-34); Mean Corpuscular Hgb Conc 33.4 g/dL (32-36); Mean Platelet Volume 9.7 fL (7.4-10.4); Platelet Count 216 K/uL (130-400); RDW Coefficient of Variation 13.3 % (11.5-14.5); RDW Standard Deviation 43.9 fL (36.4-46.3); Red Blood Count 3.79 M/uL (4.2-5.4); White Blood Count 5.82 K/uL (4.8-10.8)
[2020-06-13] MEDS ORDERED: DICYCLOMINE HCL 10 MG CAP PO PRN (10:51)
[2020-06-13 11:38] LABS: ALC (manual) 3.84 K/uL (1.2-3.4); ANC (manual) 1.67 K/uL (1.4-6.5); Basophils # (manual) 0.05 K/uL (0-0.2); Basophils % (manual) 0.9 %; Eosinophils # (manual) 0.05 K/uL (0-0.5); Eosinophils % (manual) 0.9 %; Lymphocytes # (manual) 2.73 K/uL (1.2-3.4); Lymphocytes % (manual) 46.9 %; Monocytes % (manual) 3.5 %; Neutrophils # (manual) 1.67 K/uL (1.4-6.5); Neutrophils % (manual) 28.7 %; Reactive Lymphocytes # (manual) 1.11 K/uL; Reactive Lymphocytes % (manual) 19.1 %
[2020-06-13] MEDS ORDERED: DIPHENOXYLATE/ATROPINE 2.5/0.025MG TAB PO PRN (13:15)
[2020-06-13] MEDS: LACTATED RINGER'S 1,000 ML IV SCH (16:33)
[2020-06-13] MEDS ORDERED: DICYCLOMINE HCL 20 MG TAB PO SCH (16:35)
--- NOTE | 2020-06-13 19:06 | Hospitalist Progress Note ---
Date of Service June 13, 2020 Assessment & Plan (1) Abdominal pain: possible IBS flare r/o C diff Colitis - CT abdomen: 1. No evidence of bowel obstruction. No evidence of free air 2. Fluid-filled large and small bowel loops. This is a nonspecific finding which can be seen in diarrheal illness or an enteritis. Clinical correlation in this regard is advocated 3. No evidence of acute diverticulitis. No evidence of acute appendicitis. - discussed with Dr. Fischer will do trial of Bentyl, supportive care including IV fluids, PRN analgesics, clear liquid diet - patient reassessed in the afternoon abdominal pain about 5/10, relieved by Tramadol discussed plan of care with patient and family at the bedside- Nazario in detail and at length all questions were answered - they are understanding, agreeable, comfortable with the plan of care GERD stable on PPI will use Protonix IV for now Mood disorder, stable on regimen DVT prophylaxis SCDs RE transient hematochezia Full code Disposition pending anticipate d/c home when medically stable Admission and Anticipated Discharge Date Admission Date: June 13, 2020 Subjective ff up for abdominal pain seen resting in bed, comfortable, not in distress states pain is mild-moderate relieved by pain meds no diarrhea since last night still has some discomfort/nausea with clear liquids denies chest pain, dyspnea, palpitations, fever/chills no other symptoms Review of Systems Review of Systems: All systems reviewed & are unremarkable except as noted in HPI & below Physical Exam Physical Exam: General- oriented x 3, not in distress, speaks in sentences with no effort or accessory muscle use Head- atraumatic Eyes- PERRL, EOMI, anicteric ENT- oropharynx clear Neck- supple, no JVD, no adenopathy, no thyromegaly; carotids +2/2, no bruits appreciated Lungs- clear to auscultation bilaterally, no rales/wheezes Heart- normal rate, regular rhythm; no murmur, no gallop, no rub appreciated Abdomen- normal bowel sounds, nondistended, soft, (+) mild-moderate tenderness on all quadrants Extremities- no pretibial edema, no calf tenderness; peripheral pulses intact Neuro- alert, oriented x 3; CN 2-12 grossly intact; motor 5/5 bilaterally;sensation 100% on all extremities; no other gross focal neurologic deficits Skin- warm & dry Results & Data Results & Data ([facility]) Vital Signs (Past 12 Hours) Vital Signs Temp Pulse Resp BP Pulse Ox 06/13/20 16:00 36.5 C 66 18 122/69 98 06/13/20 12:00 36.5 C 69 18 118/73 97 Laboratory Results Laboratory Results - last 24 hr 06/12/20 06/12/20 06/12/20 21:39 21:39 21:40 WBC 6.46 RBC 4.15 L Hgb 12.7 Hct 36.7 L MCV 88.4 MCH 30.6 MCHC 34.6 RDW Std Deviation 42.1 RDW Coeff of Anuja 13.0 Plt Count 216 MPV 9.9 Neutrophils % (Manual) 30.4 Lymphocytes % (Manual) 31.3 Reactive Lymphs % (Man) 32.9 Monocytes % (Manual) 3.6 Eosinophils % (Manual) Basophils % (Manual) 1.8 Neutrophils # (Manual) 1.96 Total Absolute Neuts 1.96 Lymphocytes # (Manual) 2.02 Reactive Lymphs # 2.13 Total Abs Lymphocytes 4.15 H Monocytes # (Manual) 0.23 Eosinophils # (Manual) Basophils # (Manual) 0.12 RBC Morphology Unremarkable Peripher Smr Path Cons Sodium 139 Potassium 3.8 Chloride 111 H Carbon Dioxide 22 Anion Gap 6.0 BUN 10 Creatinine 0.81 Est Cr Clr Drug Dosing 89.8 Est GFR ( Amer) 104.6 Est GFR (Non-Af Amer) 90.2 BUN/Creatinine Ratio 11.9 Glucose 76 Calcium 8.4 L Magnesium 2.3 Total Bilirubin 0.4 AST 34 ALT 28 Alkaline Phosphatase 152 H Total Protein 7.1 Albumin 3.2 L Globulin 3.9 Albumin/Globulin Ratio 0.8 L Lipase 116 Urine Color Dark Yellow Urine Appearance Turbid A Urine pH 7.5 Ur Specific [place] 1.021 Urine Protein Negative Urine Glucose (UA) Negative Urine Ketones Negative Urine Blood Negative Urine Nitrite Negative Urine Bilirubin Negative Urine Urobilinogen Negative Ur Leukocyte Esterase Negative Urine WBC (Auto) 1-5 Urine RBC (Auto) 0-4 U Hyaline Cast (Auto) 1-5 U Epithel Cells (Auto) 10-20 H Urine Bacteria (Auto) Negative Urine Crystals Calcium Oxalate A Calcium Oxalate Crystal Present A Urine Test 06/12/20 06/13/20 06/13/20 21:40 06:15 06:15 WBC 5.62 RBC 3.89 L Hgb 11.6 L Hct 35.1 L MCV 90.2 MCH 29.8 MCHC 33.0 RDW Std Deviation 42.9 RDW Coeff of Anuja 13.2 Plt Count 209 MPV 9.8 Neutrophils % (Manual) 13.0 Lymphocytes % (Manual) 49.7 Reactive Lymphs % (Man) 33.0 Monocytes % (Manual) 4.3 Eosinophils % (Manual) Basophils % (Manual) Neutrophils # (Manual) 0.73 L Total Absolute Neuts 0.73 L* Lymphocytes # (Manual) 2.79 Reactive Lymphs # 1.85 Total Abs Lymphocytes 4.65 H Monocytes # (Manual) 0.24 Eosinophils # (Manual) Basophils # (Manual) RBC Morphology Unremarkable Peripher Smr Path Cons Pending Sodium 143 Potassium 3.8 Chloride 114 H Carbon Dioxide 25 Anion Gap 4.0 BUN 8 Creatinine 0.75 Est Cr Clr Drug Dosing 88.8 Est GFR ( Amer) 114.8 Est GFR (Non-Af Amer) 99.0 BUN/Creatinine Ratio 11.1 Glucose 75 Calcium 8.0 L Magnesium Total Bilirubin AST ALT Alkaline Phosphatase Total Protein Albumin Globulin Albumin/Globulin Ratio Lipase Urine Color Urine Appearance Urine pH Ur Specific [place] Urine Protein Urine Glucose (UA) Urine Ketones Urine Blood Urine Nitrite Urine Bilirubin Urine Urobilinogen Ur Leukocyte Esterase Urine WBC (Auto) Urine RBC (Auto) U Hyaline Cast (Auto) U Epithel Cells (Auto) Urine Bacteria (Auto) Urine Crystals Calcium Oxalate Crystal Urine Test Negative 06/13/20 10:12 WBC 5.82 RBC 3.79 L Hgb 11.4 L Hct 34.1 L MCV 90.0 MCH 30.1 MCHC 33.4 RDW Std Deviation 43.9 RDW Coeff of Anuja 13.3 Plt Count 216 MPV 9.7 Neutrophils % (Manual) 28.7 Lymphocytes % (Manual) 46.9 Reactive Lymphs % (Man) 19.1 Monocytes % (Manual) 3.5 Eosinophils % (Manual) 0.9 Basophils % (Manual) 0.9 Neutrophils # (Manual) 1.67 Total Absolute Neuts 1.67 Lymphocytes # (Manual) 2.73 Reactive Lymphs # 1.11 Total Abs Lymphocytes 3.84 H Monocytes # (Manual) 0.20 Eosinophils # (Manual) 0.05 Basophils # (Manual) 0.05 RBC Morphology Peripher Smr Path Cons Cancelled Sodium Potassium Chloride Carbon Dioxide Anion Gap BUN Creatinine Est Cr Clr Drug Dosing Est GFR ( Amer) Est GFR (Non-Af Amer) BUN/Creatinine Ratio Glucose Calcium Magnesium Total Bilirubin AST ALT Alkaline Phosphatase Total Protein Albumin Globulin Albumin/Globulin Ratio Lipase Urine Color Urine Appearance Urine pH Ur Specific [place] Urine Protein Urine Glucose (UA) Urine Ketones Urine Blood Urine Nitrite Urine Bilirubin Urine Urobilinogen Ur Leukocyte Esterase Urine WBC (Auto) Urine RBC (Auto) U Hyaline Cast (Auto) U Epithel Cells (Auto) Urine Bacteria (Auto) Urine Crystals Calcium Oxalate Crystal Urine Test (1) Abdominal pain Abdominal location: right lower quadrant Qualified Code(s): R10.31 - Right lower quadrant pain
[2020-06-13] MEDS: DICYCLOMINE HCL 20 MG TAB PO PRN (22:12)
[2020-06-13] MEDS: PANTOprazole 40 MG in SYRINGE 0 ML IV SCH (22:12)
[2020-06-14] MEDS: LACTATED RINGER'S 1,000 ML IV SCH ×2 (02:29→13:26)
[2020-06-14] MEDS: DICYCLOMINE HCL 20 MG TAB PO PRN ×2 (05:51→17:02)
[2020-06-14] MEDS: TOPIRAMATE 100 MG TAB PO SCH (09:35)
[2020-06-14] MEDS: PANTOprazole 40 MG in SYRINGE 0 ML IV SCH (09:35)
[2020-06-14] MEDS: DULOXETINE HCL 60 MG CAP PO SCH (09:35)
--- NOTE | 2020-06-14 15:57 | Hospitalist Progress Note ---
Date of Service delayed entry date of service noted below June 14, 2020 Assessment & Plan (1) Abdominal pain: likely IBS flare - CT abdomen: 1. No evidence of bowel obstruction. No evidence of free air 2. Fluid-filled large and small bowel loops. This is a nonspecific finding which can be seen in diarrheal illness or an enteritis. Clinical correlation in this regard is advocated 3. No evidence of acute diverticulitis. No evidence of acute appendicitis. - GI Consulted discussed with Dr. Fischer recommend trial of Bentyl, supportive care including IV fluids, PRN analgesics, clear liquid diet - abdominal significantly improved, relieved by Bentyl, tolerating diet well, no diarrhea - discharge to home ff up with PCP in 1 week ff up with GI in 2 weeks - plan of care discussed with patient in detail and at length all questions answered she is understanding and agreeable with plan of care GERD stable on PPI Mood disorder stable on regimen Disposition d/c home ff up as above Admission and Anticipated Discharge Date Admission Date: June 13, 2020 Subjective ff up for abdominal pain seen resting in bed, comfortable, not in distress states she feels much better abdominal pain has resolved no nausea/vomiting, tolerating diet well, no diarrhea no headache, dizziness, chest pain, dyspnea no other symptoms states she is ready and would like to be discharged in the afternoon Review of Systems Review of Systems: All systems reviewed & are unremarkable except as noted in HPI & below Physical Exam Physical Exam: General- oriented x 3, not in distress, speaks in sentences with no effort or accessory muscle use Eyes- anicteric Neck- no JVD Lungs- clear BS BL Heart- normal rate, regular rhythm; no murmurs Abdomen- normal bowel sounds, nondistended, soft, nontender Extremities- no pretibial edema, no calf tenderness Neuro- alert, oriented x 3; no gross focal neurologic deficits Skin- warm & dry Results & Data Results & Data ([facility]) Vital Signs (Past 12 Hours) Vital Signs Temp Pulse Resp BP Pulse Ox 06/14/20 08:00 36.8 C 60 16 105/69 97 Laboratory Results noted and reviewed (1) Abdominal pain Abdominal location: right lower quadrant Qualified Code(s): R10.31 - Right lower quadrant pain
[2020-06-14] MEDS ORDERED: DICYCLOMINE HCL 20 MG TAB PO SCH (16:19)
--- NOTE | 2020-06-17 12:05 | Discharge Summary ---
Date of Service June 17, 2020 Admission HPI Per Admitting Provider History obtained from patient, family, and records. Medical history significant for IBS, GERD, mood disorder, past tobacco abuse. Last confinement April 2013 under General Surgery service for laparoscopic cholecystectomy. Patient has had IBS diagnosis for about 25 years now. Initially constipation predominant illness. Symptoms improved with SSRI and PPI Rx. SSRI later switched to Cymbalta with concomitant left knee pain discomfort. In the last few years, IBS more of diarrhea predominant as per patient. Watery loose stools about twice daily frequency. No unusual weight loss. 3 weeks history of achy lower abdominal pain going to her back with usual loose stools. Transiently improved with Bactrim Rx for possible UTI. Intermittent fever at home. Some bloatedness after eating. No known sick contacts, recent out-of-town travel. No unusual stress at home or at work as per patient. Patient seen at the ER 3 days ago because of worsening abdominal discomfort the last [address] showed ileus. Symptoms attributed to viral illness. Patient discharged home given patient comfort after intervention at the ER. Recurrence of discomfort at home the last 2 days with some nausea, no emesis. Occasional blood in the stools as per patient. Patient sent to the ER for evaluation. Intractable discomfort at the ER. Medical History as above 2019 colonoscopy showed polyps, hemorrhoids Surgical History : Cholecystectomy, left knee surgery, cervical colposcopy Family History : Pancreatic cancer, colon cancer, diabetes, heart disease, stroke Personal/Social history : Past tobacco abuse, occasional EtOH intake, office work Admission Exam Per Admitting Provider GENERAL: Slightly uncomfortable, pleasant, no respiratory distress SKIN: Normal color, warm HEENT: Warm [place] palpebral conjunctivae, no ptosis, dry buccal mucosa NECK : Supple, no tenderness CHEST : CTA, no tenderness HEART : RRR, no obvious murmurs ABDOMEN: Some distention, nonspecific tenderness on light palpation EXTREMITIES : No LE swelling/tenderness, no other conspicuous deformities noted NEUROLOGIC : Coherent, no facial asymmetry, no other gross focality Principal Diagnosis Abdominal Pain Secondary to Irritable Bowel Syndrome Discharge Exam General- oriented x 3, not in distress, speaks in sentences with no effort or accessory muscle use Eyes- anicteric Neck- no JVD Lungs- clear BS BL Heart- normal rate, regular rhythm; no murmurs Abdomen- normal bowel sounds, nondistended, soft, nontender Extremities- no pretibial edema, no calf tenderness Neuro- alert, oriented x 3; no gross focal neurologic deficits Skin- warm & dry Discharge Data Allergies Allergy/AdvReac Type Severity Reaction Status Date / Time No Known Allergies Allergy Unverified 06/12/20 22:49 Consultations 06/13/20 04:15 Consult Gastroenterology Routine Ordered Studies 06/12/20 22:09 CT abd pelvis IV con only Urgent FINDINGS: Lower chest: The lung bases are clear. There is trace pericardial fluid. Liver: There is mild central intrahepatic biliary ductal prominence, likely secondary to a reservoir effect given the prior cholecystectomy Gallbladder: Surgically absent Spleen: Normal in size and attenuation. Pancreas: Unremarkable. Adrenal glands: Unremarkable. Kidneys: There is symmetric renal cortical enhancement. The kidneys are normal in size without hydronephrosis. Bowel: There are fluid-filled loops of colon and small bowel with scattered air- fluid levels. There are no transition zones to indicate bowel obstruction. The findings are suggestive of a possible enteritis. There is no significant bowel wall thickening. There is no evidence of acute diverticulitis. The appendix is not visualized with certainty however there are no findings to indicate acute appendicitis. Peritoneum: There is no intraperitoneal free air or abdominal ascites. Vasculature: The abdominal aorta is normal in course and caliber. Adenopathy: None. Pelvic viscera: There is an indwelling vaginal ring. Skeletal structures: No destructive osseous lesions are seen. IMPRESSION: 1. No evidence of bowel obstruction. No evidence of free air 2. Fluid-filled large and small bowel loops. This is a nonspecific finding which can be seen in diarrheal illness or an enteritis. Clinical correlation in this regard is advocated 3. No evidence of acute diverticulitis. No evidence of acute appendicitis. 06/12/20 23:48 US pelvic complete Urgent US transvaginal Urgent FINDINGS: The uterus measured 6.5 cm. The endometrial stripe measured 5 mm. The right ovary measured 2.5 cm maximum dimension. Normal vascular flow. The left ovary measured poorly seen due to overlying bowel content. There is no ultrasonographic evidence of ovarian torsion. It should be noted that ovarian torsion can be present with normal Doppler ultrasonographic findings. There was no evidence of pathologic free pelvic fluid. IMPRESSION: 1. Poor visibility left ovary due to overlying bowel content. 2. Otherwise negative pelvic ultrasound. Hospital Course (1) Abdominal pain: likely Irritable Bowel Syndrome flare - CT abdomen: 1. No evidence of bowel obstruction. No evidence of free air 2. Fluid-filled large and small bowel loops. This is a nonspecific finding which can be seen in diarrheal illness or an enteritis. Clinical correlation in this regard is advocated 3. No evidence of acute diverticulitis. No evidence of acute appendicitis. - GI Consulted discussed with Dr. Fischer, symptoms felt to be IBS flare recommend trial of Bentyl, supportive care including IV fluids, PRN analgesics, clear liquid diet - abdominal pain significantly improved, relieved by Bentyl, tolerating diet well, no diarrhea - discharge to home with PRN Bentyl, low FODMAP diet recommended, advance diet as tolerated ff up with PCP in 1 week ff up with GI in 2 weeks - plan of care discussed with patient in detail and at length all questions answered she is understanding and agreeable with plan of care GERD stable on PPI Mood disorder stable on regimen Disposition d/c home ff up as above Total Time Total Time Spent Total Time Spent (In Minutes): > 30 minutes Discharge Plan Discharge Items Patient Disposition: Home - Self-Care Reason For Visit: ABD PAIN Discharge Diagnosis: ABDOMINAL PAIN SECONDARY TO IRRITABLE BOWEL SYNDROME FLARE Activity: Resume your previous activity Activity Comment: GRADUALLY TOLERATED Non-emergency contact: Primary Care Provider and Ppap Coordinator Call non-emergency contact if: you have any medication questions, your symptoms worsen, your pain is not controlled, your pain is worsening, your pain is unusual for you, your pain is concerning for you and you have a fever Follow-up/Referrals: Brinda Drew, [Primary Care Provider] - Diet: Gluten Free, Low Fat, Lactose Intolerant and Other - See Diet Comment Diet Comment: LOW FODMAP DIET Addtl Attending Provider Instructions: YOUR NEW MEDICATION IS BENTYL (DICYCLOMINE)- ANTISPASMODIC AGENT FOR ABDOMINAL PAIN. ADVANCE DIET GRADUALLY TOLERATED. DRINK PLENTY OF FLUIDS. FOLLOW LOW FODMAP DIET. PLEASE FOLLOW UP WITH PRIMARY CARE PHYSICIAN THIS WEEK SCHEDULED. FOLLOW UP WITH OUTSIDE FOOD SERVER IN 1-2 WEEKS. PLEASE CALL PRIMARY CARE PHYSICIAN OR RETURN TO THE ER IMMEDIATELY IF WITH WORSENING OF ABDOMINAL PAIN, NAUSEA/VOMITING, FEVER/CHILLS, POOR APPETITE. Pending Studies at Discharge: No Stand-Alone Forms: [place], Smoking Cessation Medications and DC Order Prescriptions: New dicyclomine 20 mg Tablet 20 mg PO TID PRN (Reason: abdominal pain) Qty: 30 RF: 0 Continued tramadol [Ultram] 50 mg tablet 50 mg PO Q6 PRN (Reason: Pain) RF: 0 omeprazole 20 mg capsule,delayed release(DR/EC) 20 mg PO DAILY RF: 0 topiramate 100 mg tablet 100 mg PO BID RF: 0 duloxetine 60 mg capsule,delayed release(DR/EC) 60 mg PO DAILY RF: 0 etonogestrel-ethinyl estradiol [EluRyng] 0.12-0.015 mg/24 hr ring 1 vag ring VAGINAL UD RF: 0 Discharge Orders: Discharge Order (Routine); Ordered 06/14/20 Ordered By: Ismael Black Admission Data Admit Date/Time: 06/13/20 03:01 Attending Provider: Ismael Black Admit Provider: Phil Esparza Primary Care Provider: Brinda Drew Other Providers: Thom Agudelo ; Renetta North ; Jeff Zapata ; Lata Richard ; Shahzad Coburn ; Amna Riojas ; Toyin Davidson ; Alice Kan ; Donta Villareal ; Eric Abbott ; Emily Schaffer ; Mervat Fischer ; Jayashree Bui ; Nesha Skinner ; Radha Knox Other Interventions: Discharge Summary Assessment (RN) Last Done: 06/14/20 16:20 DC Date/Time DO NOT enter until pt leaves facility: 06/14/20 17:10
== END 2020-06-14 17:10 | disposition home or self-care (01) ==
LOC: ED 20:55 → 2S 20:55 → 3W 06-13 11:31